=== PATIENT | female | born 1990 | race Caucasian/White ===

== ENCOUNTER 2020-08-13 06:10 | Inpatient (IN) | payer OTHER, SELFPAY ==
[2020-08-13] VITALS (93 sets, daily range): BP systolic 84–115; BP diastolic 47–80; PULSE 59–97; RESP 16; TEMP 36.4–36.6; O2SAT 97–100; BMI 36.3
[2020-08-13 07:19] LABS: Basophils Percent Auto 0.3 % (0.2-1.2); Eosinophils Absolute Auto 0.1 K/mm3 (0-0.3); Eosinophils Percent Auto 0.8 % (0-4.4); Hematocrit 31.7 % (37.0-47.0); Hemoglobin 10.5 g/dL (12.0-15.0); Immature Granulocyte Absolute 0.06 K/mm3 (0.00-0.031); Immature Granulocyte Percent A 0.8 % (0-0.5); Lymphocytes Absolute Auto 1.79 K/mm3 (0.9-3.2); Lymphocytes Percent Auto 23.1 % (18.3-44.2); Mean Corpuscular HGB Conc 33.1 g/dl (32-36); Mean Corpuscular Hemoglobin 30.3 pg (26-34); Mean Corpuscular Volume 91.4 fl (80-100); Mean Platelet Volume 10.5 fl (7.4-10.4); Monocytes Absolute Auto 0.6 K/mm3 (0.1-0.6); Monocytes Percent Auto 7.9 % (2.6-8.5); Neutrophils Absolute Auto 5.2 K/mm3 (1.3-6.7); Neutrophils Percent Auto 67.1 % (45.5-73.1); Platelet Count Result 196 k/mm3 (150-375); Red Blood Count 3.47 M/mm3 (4.2-5.4); Red Cell Distribution Width 14.3 % (11.5-14.5); White Blood Count 7.8 K/mm3 (4.5-10.0)
[2020-08-13] MEDS: LACTATED RINGERS 1,000 ML 125 ML IV CONT ×2 (07:26→08:06)
[2020-08-13] MEDS: OXYTOCIN 30 UNITS/NS 500 ML 30 UNITS/500 ML BAG IV CONT (07:26)
--- NOTE | 2020-08-13 07:32 | WPDANESEPP ---
Anes - Eval Pre Procedure Procedure: Labor epidural Date/Time: 08/13/20 07:32 Surgeon: Korin Preop Diagnosis: pain during labor Pre Op Diagnosis: induction Patient Data Age: 30 Gender: F Height: Weight: Last Vital Signs Pulse 74 08/13/20 07:31 BP 103/70 08/13/20 07:31 Allergies Allergy/AdvReac Type Severity Reaction Status Date / Time pineapple Allergy Mild itch & Verified 08/01/20 12:50 rash egg Allergy Unknown UNK Verified 08/01/20 12:50 Home Medications Medication Instructions Recorded Confirmed Type Lactobacillus rhamnosus GG 10 1 cap PO DAILY 05/06/19 08/13/20 History billion cell capsule escitalopram oxalate 10 mg tablet 10 mg PO DAILY 05/06/19 08/13/20 History loratadine 10 mg tablet 10 mg PO DAILY 05/06/19 08/13/20 History magnesium oxide,aspartate,citr 400 mg PO HS 05/06/19 08/13/20 History xxtlyjjb-rup-bvil-FA-Ca carb-vit K 1 tablet PO DAILY 05/06/19 08/13/20 History 18 mg iron-400 mcg-500 mg tablet albuterol sulfate 90 mcg/actuation 1 inhalation INHALATION Q4-6H PRN 11/25/19 08/13/20 Rx breath activated powder inhaler #1 each Laboratory Tests 08/13/20 08/13/20 06:50 06:50 WBC 7.8 K/mm3 K/mm3 (4.5-10.0) RBC 3.47 M/mm3 L M/mm3 (4.2-5.4) Hgb 10.5 g/dL L g/dL (12.0-15.0) Hct 31.7 % L % (37.0-47.0) MCV 91.4 fl fl (80-100) MCH 30.3 pg pg (26-34) MCHC 33.1 g/dl g/dl (32-36) RDW 14.3 % % (11.5-14.5) Plt Count 196 k/mm3 k/mm3 (150-375) MPV 10.5 fl H fl (7.4-10.4) Immature Gran % (Auto) 0.8 % H % (0-0.5) Neut % (Auto) 67.1 % % (45.5-73.1) Lymph % (Auto) 23.1 % % (18.3-44.2) [place] % (Auto) 7.9 % % (2.6-8.5) Eos % (Auto) 0.8 % % (0-4.4) Baso % (Auto) 0.3 % % (0.2-1.2) Lymph # (Auto) 1.79 K/mm3 K/mm3 (0.9-3.2) [place] # (Auto) 0.6 K/mm3 K/mm3 (0.1-0.6) Eos # (Auto) 0.1 K/mm3 K/mm3 (0-0.3) Baso # (Auto) 0.0 K/mm3 K/mm3 (0.0-0.1) Abs Immat Gran (auto) 0.06 K/mm3 H K/mm3 (0.00-0.031) Absolute Neuts (auto) 5.2 K/mm3 K/mm3 (1.3-6.7) Absolute Nucleated RBC 0.0 K/mm3 K/mm3 (0.0-0.012) Nucleated RBC % 0.0 % % (0.0-0.2) RPR Pending Patient hx anesthesia problems: none Family hx anesthesia problems: none PMFSH Past Medical History Medical History (Updated 05/06/19 @ 22:49 by Deneen Brewer MD) Gestational diabetes mellitus depression Family History Family History (Updated 08/01/20 @ 12:54 by Bronson Chahal RN) Sibling ADHD (attention deficit hyperactivity disorder) Anxiety Depression Mother Asthma Hypothyroidism PVCs (premature ventricular contractions) Grandparent Colon cancer Alzheimer disease Social History Social History Smoking status: Never smoker Substance use: never Spiritual care concerns: No Exam Day of Procedure 08/13/20 07:32
--- NOTE | 2020-08-13 08:45 | WPDOBADMIT ---
Obstetrics - Admit Note Admission Note: record reviewed. Additions to the history and/or subsequent changes in the physical findings follow. 30 y/o at 40 weeks here for induction of labor. GBS neg. AVSS NST reactive TOCO: contractions every 2-4 min ABD soft, nontender, gravid, vertex EXT nontender Cervix 4/50/-2. AROM with clear fluid. Vertex. A: IUP at 40 weeks, favorable cervix, desiring induction of labor. P: Oxytocin. Anticipate .
[2020-08-13] MEDS: CALCIUM CARBONATE (TUMS) 500 MG (200 MG ELEMENTAL) PO (11:15)
--- NOTE | 2020-08-13 12:00 | PM.OBPRVD ---
OB - Delivery Note Procedure Delivery date: 08/13/20 Procedure: Induction of labor with Induction method: per pitocin protocol Delivery augmentation: rupture of membranes and pitocin Delivery monitor: external FHT and external uterine Route of delivery: Laceration Description: Perineal - 2nd Degree Delivery repair: vicryl (3-0) Specimen: Yes (cord blood) Quantitative Blood Loss (ml): 125 Anesthesia type: Epidural Disposition: PACU Complications: None Narrative: 30 y/o at 40 weeks gestation who presented to the hospital for induction of labor. Oxytocin was administered intravenously. Amniotomy was performed with return of clear fluid. She received an epidural for pain control. Her labor progressed and her cervix dilated completely. She pushed with good effort and delivered the infant's head to the perineum. A loose nuchal cord was splinted and the body delivered. The cord was reduced. The nose and mouth were bulb suctioned. After a delay, the cord was clamped and cut. The infant was handed off the field. Cord blood was collected. The placenta delivered spontaneously and was grossly normal in appearance. The usual 3 vessel cord was noted. A second degree midline perineal laceration was sustained. This was reapproximated using 3 0 Vicryl in the usual layered fashion. Excellent hemostasis resulted as did excellent reapproximation of the normal anatomy. Needle and instrument counts were correct. The patient was taken to recovery room in stable condition. The went to the nursery in stable condition. I was present and scrubbed for the entire delivery. [place] Baby Date of : 08/13/20 Time of : 12:02 Weeks of gestation at delivery: 40 gender: Female Weight (pounds): 9 Weight (ounces): 11 presentation: vertex position: Left Occiput Anterior Placenta delivery description: Spontaneous and Normal Configuration cord vessel description: 3 Vessels, Nuchal Cord and Delayed Cord Clamping score one minute: 8 score five minutes: 9
[2020-08-13] MEDS: OXYTOCIN 30 UNITS/NS 500 ML 30 UNITS/500 ML BAG 125 UNITS IV CONT (12:01)
--- NOTE | 2020-08-13 12:02 | PM.OBDSVD ---
DS: Admitting Diagnosis Admitting Diagnosis Admitting Diagnosis: IUP at 40 weeks Favorable cervix DS: Discharge Diagnosis Discharge Diagnosis (1) (normal spontaneous vaginal delivery): Code(s): O80 - Encounter for full-term uncomplicated delivery Status: Acute OB - DS: Summary OB Procedures : None OB Procedures Intrapartum: Spontaneous Vag Delivery OB Procedures: : None DS: Data Data Completed and Pending Labs on day of discharge: Labs from last 24 hours 08/13/20 08/13/20 08/13/20 06:50 06:50 06:50 WBC 7.8 RBC 3.47 L Hgb 10.5 L Hct 31.7 L MCV 91.4 MCH 30.3 MCHC 33.1 RDW 14.3 Plt Count 196 MPV 10.5 H Immature Gran % (Auto) 0.8 H Neut % (Auto) 67.1 Lymph % (Auto) 23.1 [place] % (Auto) 7.9 Eos % (Auto) 0.8 Baso % (Auto) 0.3 Lymph # (Auto) 1.79 [place] # (Auto) 0.6 Eos # (Auto) 0.1 Baso # (Auto) 0.0 Abs Immat Gran (auto) 0.06 H Absolute Neuts (auto) 5.2 Absolute Nucleated RBC 0.0 Nucleated RBC % 0.0 RPR Pending Blood Type O Positive Antibody Screen Negative Discharge Plan Discharge Attending physician on discharge: Hi Langley Discharging Clinician: Hi Langley Patient Disposition: Home, Self-Care Activity: pelvic rest Diet: regular Discharge Instructions: Education: Mom and Baby Guide Given to: Mother Follow-Up: Call your delivering provider's office for an appointment to be seen in: 4 Weeks Mom and baby should come to the [facility] for the follow-up appointment. Appointment Date/Time: August 17, 2020 at 10:00 am What to expect at your follow-up visit: Blood Pressure Check Call [phone] if you are unable to keep your appointment time. BREAST CARE: * Wear a snug supportive bra. * For engorgement discomfort: Breast Feeding: * Apply warm moist washcloths * Express milk as needed to relieve engorgement * Wear loose clothing Bottle Feeding: * May apply ice packs * For sore nipples: * Identify correct latch-on * Apply warm moist washcloths before and after nursing * Air dry nipples after nursing * May apply Lansinoh cream to nipples PERINEAL CARE: * Until bleeding stops, use your vicki bottle after urinating * Change your pad frequently throughout the day * You may take sitz baths several times a day (fill your bathtub with warm water and soak for 20 minutes.) Do NOT bathe in the water * No tub baths until seen by your physician - You may shower ACTIVITY: * Rest as much as possible. * Do not exercise or lift anything heavier than your baby (such as laundry or other children.) * Avoid stairs or driving as much as possible. * Do not put anything into the vagina. No douching, tampons, or sexual activity until seen by physician. NOTIFY PHYSICIAN IF YOU HAVE ANY QUESTIONS OR IF ANY OF THE FOLLOWING SYMPTOMS OCCUR: * If your perineum becomes red, swollen, or more painful than what you have experienced in the hospital. * If your vaginal bleeding becomes foul smelling. * If your vaginal bleeding becomes more heavy than a period or if your bleeding changes from pink to bright red. However, you may pass an occasional walnut-sized clot once or twice for the first week . * If you experience a sharp, shooting pain in you calves. * If you discover a hard, reddened area on your breast or if you experience flu-like symptoms. * If you have a fever of 100.4 or greater DIET: * Eat regular, well-balanced meals. * Drink plenty of fluids daily. If , drink to thirst.Call or return if temperature above 100.4? F, increased abdominal pain, increased vaginal bleeding or any new problems. Stand Alone Forms: General Discharge Information Follow-up/Referrals: Hi Langley MD [Physician] - 6 Weeks Discharge Medications: New
[2020-08-13] MEDS: WITCH HAZEL 40 PADS 1 PAD TOPICAL (14:08)
[2020-08-13] MEDS: BENZOCAINE 20% AER SPR (*SP) 56 GM CAN 1 SPRAY TOPICAL (14:09)
[2020-08-13] MEDS: IBUPROFEN 600 MG TABLET PO ×2 (14:53→21:44)
[2020-08-13] MEDS: LANOLIN (LANSINOH) 7.5 GM CREAM 1 APPLIC TOPICAL (14:54)
--- NOTE | 2020-08-13 15:28 | PC.NURSE ---
1427 Pt admitted to room 286 per wheelchair from labor and delivery after vaginal delivery of viable female at [address] Daria Langley. Mother is a and is choosing to breast feed baby. /FOB present. Couple oriented to room, staffing and procedures. Admission folder reviewed with couple including Mother Baby Guide. Pt's VSS and assessment WNL.
[2020-08-13] MEDS: ACETAMINOPHEN 325 MG TABLET 650 MG PO (19:00)
[2020-08-13] MEDS: HYDROcodone/acetaminophen (*CRX) 5-325 MG TABLET 1 TAB PO (21:44)
[2020-08-13] MEDS: LORATADINE 10 MG TABLET PO (21:45)
[2020-08-14 03:47] VITALS: BP 104/64; PULSE 67; RESP 16; TEMP 36.2; O2SAT 99
[2020-08-14 05:49] LABS: Hematocrit 31.9 % (37.0-47.0); Hemoglobin 10.2 g/dL (12.0-15.0)
[2020-08-14 07:00] VITALS: PULSE 67; RESP 16; O2SAT 99
[2020-08-14 07:01] LABS: Rapid Plasma Reagin Non-Reactive (NonReactive)
[2020-08-14] MEDS: IBUPROFEN 600 MG TABLET PO ×2 (07:10→16:42)
[2020-08-14] MEDS: ACIDOPHILUS/BULGARICUS CHEWABLE TABLET 1 TABLET BY MOUTH (07:11)
[2020-08-14] MEDS: DOCUSATE SODIUM 100 MG CAPSULE ×2 (07:11→16:42)
[2020-08-14] MEDS: MULTIVIT/MIN/PREN/FOL AC/IRON TABLET 1 TAB PO (07:11)
[2020-08-14 07:45] VITALS: BP 104/71; PULSE 60; RESP 16; TEMP 36.7; O2SAT 100
--- NOTE | 2020-08-14 08:46 | PM.OBPNVD ---
OB - PN: Subj Subjective Date/time seen: 08/14/20 08:46 Narrative: Pain OK. OB - PN: Obj Data Labs CBC & Chem 7: 08/14/20 03:24 Labs: Laboratory Results - last 24 hr 08/13/20 08/14/20 06:50 03:24 Hgb 10.2 L Hct 31.9 L RPR Non-reactive OB - PN A/P Plan Comments: A: PPD#1, doing well. P: Routine care. Exam Psych: Other: AVSS ABD soft, nontender, fundus firm EXT nontender
--- NOTE | 2020-08-14 10:36 | WPDANESPN ---
Anes - Prog Note Post-Op Date/Time: 08/14/20 10:36 Cardiovascular status: normal Respiratory status: normal Airway patency: baseline Mental status: baseline Post-Op hydration status: normal Vital Signs: Last Vital Signs Temp 36.7 C 08/14/20 07:45 Pulse 60 08/14/20 07:45 Resp 16 08/14/20 07:45 BP 104/71 08/14/20 07:45 Pulse Ox 100 08/14/20 07:45 Pain Score (VAS): 3 I/O: Intake & Output 08/13/20 08/14/20 08/14/20 23:59 07:59 15:59 Intake Total 500 Balance 500 Laboratory Tests 08/14/20 03:24 08/13/20 08/14/20 06:50 03:24 Hgb 10.2 L Hct 31.9 L RPR Non-reactive Post-procedural complaints: none Patient Feedback: Patient satisfied with anesthetic care.
--- NOTE | 2020-08-14 10:37 | WPDANLDPN2 ---
Anes-Prog Note L&D Date/Time: 08/14/20 10:37 Comfortable throughout: labor and delivery Neuraxial method: epidural Epidural/Spinal procedure site: clean & non-tender Neuro status: Neuro function grossly intact. Cardiovascular status: normal Respiratory status: normal Airway patency: baseline Mental status: baseline Post-Op hydration status: normal Vital Signs: Last Vital Signs Temp 36.7 C 08/14/20 07:45 Pulse 60 08/14/20 07:45 Resp 16 08/14/20 07:45 BP 104/71 08/14/20 07:45 Pulse Ox 100 08/14/20 07:45 Pain score (VAS): 3 I/O: Intake & Output 08/13/20 08/14/20 08/14/20 23:59 07:59 15:59 Intake Total 500 Balance 500 Post-procedural complaints: none Patient feedback: Patient satisfied with anesthetic care.
[2020-08-14] MEDS: HYDROcodone/acetaminophen (*CRX) 5-325 MG TABLET 1 TAB PO ×2 (11:55→16:42)
--- NOTE | 2020-08-14 15:30 | PC.NURSE ---
Attempt to consult several times this day. Mother either sleeping or busy. Mother called out for assist with feeding. Consulted with patient, mother reports has been eager to feed each feeding. Mother reports tenderness bilat. and is slightly reddened to both nipples. Reviewed it appears is shallow at breast. Mother states this is 4th to breastfeed and worked with latch for the first week with her children. Reviewed infant feeding cues, frequencies, duration of feedings, feeding elimination flow sheet, and signs of adequate intake. Demonstrated stimulation techniques to wake infant for feeding. Assisted with infant to breast. Reviewed positioning/alignment in cross cradle, holding breast in ?U? hold and guided asymmetrical latch on. able to latch correctly. Infant nursed eagerly, with steady draws and frequent swallowing noted. Reviewed signs of a correct latch, effective nursing and suck swallow ratio. Infant was able to latch deeply and will pull back to shallow latch while feeding. Mother then reports tenderness. Demonstrated how to adjust latch more deeply while feeding. Mother reports she can feel change in latch and has less tenderness. Nipple care reviewed of lanolin after feedings, warm compresses as needed. Instructed mother to call out for RN assistance if she is unable to latch infant for feeding or she has discomfort with nursing. Instructed feeding should be initiated three hours from start of last feeding or if feeding cues are noted before. Mother voiced understanding of information shared.
[2020-08-14 20:00] VITALS: BP 116/77; PULSE 60; PULSE 73; RESP 16; TEMP 36.4; O2SAT 100
[2020-08-15] MEDS: MULTIVIT/MIN/PREN/FOL AC/IRON TABLET 1 TAB PO (06:56)
[2020-08-15] MEDS: DOCUSATE SODIUM 100 MG CAPSULE (06:56)
[2020-08-15] MEDS: HYDROcodone/acetaminophen (*CRX) 5-325 MG TABLET 1 TAB PO (06:56)
[2020-08-15] MEDS: IBUPROFEN 600 MG TABLET PO (06:57)
--- NOTE | 2020-08-15 07:19 | PM.OBPNVD ---
OB - PN: Subj Subjective Date/time seen: 08/15/20 07:19 Patient comments: no complaints and pain well controlled baby status: doing well and nursing well OB - PN: Obj Data Labs CBC & Chem 7: 08/14/20 03:24 OB - PN A/P Plan day: 2 Plan: routine care, discharge home and follow up 6 weeks Time Spent With Patient Time: Total time spent is greater than 50% in coordination of care (as documented) at patient's floor/unit and/or counseling patient: Time with patient: less than 15 minutes Review of Systems Review of Systems: All systems reviewed & are unremarkable except as noted in HPI and below Exam Const: General: no acute distress Eyes: General: appearance normal, both eyes and all related structures Neck: Neck: supple and no JVD Thyroid: thyroid normal Resp: Effort & Inspection: normal respiratory effort Auscultation: clear to auscultation bilaterally Cardio: Rate: regular rate Rhythm: regular rhythm GI: Inspection: non-distended GI Palp: Yes Soft to palpation, No Tenderness to palpation present (GI) and No Guarding due to palpation present (GI) Auscultation: normal bowel sounds : General: Yes bladder normal to palpation External Female Exam: normal external appearance Speculum Exam - Vagina: normal vaginal discharge and No vaginal bleeding Speculum Exam - Cervix: nontender Bimanual exam- vagina & uterus: bladder normal to palpation and No Cervical tenderness present OB/external & speculum: No vaginal bleeding Skin: General skin exam: no rashes or lesions noted Extrem: General: normal to inspection and no edema Psych: Mental Status: mental status grossly normal Affect: normal affect
--- NOTE | 2020-08-15 07:30 | PC.NURSE ---
PT introductions made and plan of care discussed per post , pain management, breast feeding, daily care activities and pending discharge to home. PT received discharge instructions and any education per one to one discussion , mom baby care guide book, and pt and spouse were the recipients of such instructions. no barriers to learning identified. pt verbalized understanding of such care.
[2020-08-15 08:00] VITALS: BP 109/73; PULSE 68; RESP 18; TEMP 36.8; O2SAT 98
--- NOTE | 2020-08-15 12:00 | PC.NURSE ---
Pt instructed on discharge teaching per protocol and verbalized understanding of such care.
--- NOTE | 2020-08-15 12:34 | PC.NURSE ---
PT discharged to home ambulatory accompanied by spouse and and taken to waiting car. Follow up appts confirmed
[2020-08-17 10:42] VITALS: BP 113/72; PULSE 60; RESP 20; TEMP 36.6; O2SAT 100
== END 2020-08-15 12:34 | disposition home or self-care (01) | DRG 807 ==
LOC: ANHLDR 12:04 → ANHOB2 08-14 14:31 → ANHLDR 08-17 11:58 → ANHOB2 08-17 11:58
PROVIDERS: Admitting Provider Obstetrics & Gynecology; PCP Family Medicine; Visit Provider Obstetrics & Gynecology
DX: O69.81X0 Labor and delivery complicated by cord around neck, without compression, not applicable or unspecified (principal); Z37.0 Single live birth; O70.1 Second degree perineal laceration during delivery; Z3A.40 40 weeks gestation of pregnancy
CPT/HCPCS: 36415; 85014; 85018; 85025; 86592; 86850; 86900; 86901; A9270; J2590; J2795; J7120

== ENCOUNTER 2021-04-21 12:42 | Outpatient (RCR) | payer OTHER, SELFPAY ==
[2021-04-21] MEDS: FAMOTIDINE 20 MG TABLET PO (14:39)
[2021-04-21] MEDS: diphenhydrAMINE HCl CAP 25 MG CAPSULE PO (14:39)
[2021-04-21] MEDS: ACETAMINOPHEN 325 MG TABLET 650 MG PO (14:39)
[2021-04-21 14:41] VITALS: BP 119/59; PULSE 66; RESP 18; TEMP 36.2; O2SAT 98
[2021-04-21 16:05] VITALS: BP 95/56; PULSE 66; O2SAT 98
== END 2021-04-21 17:00 ==
LOC: AMCINF 12:42
PROVIDERS: PCP Family Medicine; Visit Provider Internal Medicine Hematology & Oncology
DX: U07.1 COVID-19 (principal)
CPT/HCPCS: A9270; M0245; Q0245